=== PATIENT | male | born 1955 | race Caucasian/White ===

== ENCOUNTER 2021-01-29 15:40 | Emergency (ER) | payer OTHER, SELFPAY ==
[~2021-01-29] VITALS: Ht 188 cm; Wt 90.9 kg
[2021-01-29] MEDS ORDERED: normal saline 1000ML IV soln IVB ONE (15:50)
[2021-01-29] MEDS ORDERED: ondansetron/PF 4mg/2ml inj IV ONE (15:50)
[2021-01-29 15:59] VITALS: BP 141/81
[2021-01-29 16:16] LABS: LYMPHOCYTES # (AUTO) 1.3 X10'3 (1.1-4.8); LYMPHOCYTES % (AUTO) 25.5 % (21-51); MONOCYTES # (AUTO) 0.4 X10'3 (0-0.9)
[2021-01-29 16:18] LABS: BASOPHILS # (AUTO) 0.1 X10'3 (0-0.2); BASOPHILS % (AUTO) 1.1 % (0-1); EOSINOPHILS % (AUTO) 0.4 % (0-6); HEMATOCRIT 48.3 % (42.0-52.0); HEMOGLOBIN 16.8 g/dl (14.0-17.9); MEAN CORPUSCULAR HEMOGLOBIN 31.3 PG (27.0-31.0); MEAN CORPUSCULAR HGB CONC 34.8 g/dL (33.0-36.5); MEAN CORPUSCULAR VOLUME 89.9 FL (78-98); MEAN PLATELET VOLUME 8.2 FL (7.4-10.4); MONOCYTES % (AUTO) 8.2 % (2-12); NEUTROPHILS # (AUTO) 3.3 X10'3 (1.8-7.7); NEUTROPHILS % (AUTO) 64.8 % (42-75); PLATELET COUNT 275 X10'3 (140-440); RED BLOOD COUNT 5.37 X10'6 (4.70-6.10); RED CELL DISTRIBUTION WIDTH 14.3 % (11.5-14.5)
[2021-01-29 16:28] LABS: ALANINE AMINOTRANSFERASE 31 U/L (12-78); ALBUMIN 3.2 G/DL (3.4-5.0); ALBUMIN/GLOBULIN RATIO 0.7 (1.1-1.5); ALKALINE PHOSPHATASE 75 IU/L (46-116); ANION GAP 9 (8-16); ASPARTATE AMINO TRANSFERASE 28 U/L (10-37); BILIRUBIN,TOTAL 0.6 MG/DL (0.1-1.0); BLOOD UREA NITROGEN 14 MG/DL (7-18); BUN/CREATININE RATIO 10.4 (5.4-32.0); CALCIUM 8.1 MG/DL (8.5-10.1); CHLORIDE 105 MMOL/L (99-107); CREATININE 1.34 MG/DL (0.60-1.10); GLUCOSE 105 MG/DL (70-104); POTASSIUM 4.4 MMOL/L (3.5-5.1); SODIUM 143 MMOL/L (135-145); TOTAL CARBON DIOXIDE 29.4 MMOL/L (24-32); TOTAL PROTEIN 7.5 G/DL (6.4-8.2); eGFR 54 ML/MIN
[2021-01-29] MEDS ORDERED: ONDA4TAB6 PO (16:41)
[2021-01-29] MEDS ORDERED: ALBU6.7H9 INH (16:44)
[2021-01-29] MEDS ORDERED: BENZ-38 PO (16:44)
[2021-01-29 18:12] LABS: PLATELET ESTIMATE NORMAL; TOTAL CELLS COUNTED 100
== END 2021-01-29 17:20 | disposition home or self-care (01) ==
LOC: ER 15:41
DX: E86.0 Dehydration (principal); R05.9 Cough, unspecified; R50.9 Fever, unspecified; R11.0 Nausea; R19.7 Diarrhea, unspecified; Z79.899 Other long term (current) drug therapy
CPT/HCPCS: 36415; 71045; 80053; 85007; 85025; 96361; 96374; 99284; J2405; J7030

== ENCOUNTER 2021-01-31 14:54 | Emergency (ER) | payer OTHER ==
[~2021-01-31] VITALS: Ht 188 cm; Wt 88.6 kg
[~2021-01-31 14:54] MED LIST: ALBU6.7H9 INH; BENZ-38 PO; ONDA4TAB6 PO
[2021-01-31 15:26] VITALS: BP 114/68
[2021-01-31] MEDS ORDERED: normal saline 1000ML IV soln IVB ONE (16:10)
[2021-01-31 16:43] LABS: BASOPHILS # (AUTO) 0.1 X10'3 (0-0.2); BASOPHILS % (AUTO) 0.9 % (0-1); EOSINOPHILS % (AUTO) 0.1 % (0-6); HEMATOCRIT 46.5 % (42.0-52.0); MEAN CORPUSCULAR HEMOGLOBIN 30.9 PG (27.0-31.0); MEAN CORPUSCULAR HGB CONC 34.3 g/dL (33.0-36.5); MEAN CORPUSCULAR VOLUME 90.2 FL (78-98); MEAN PLATELET VOLUME 8.7 FL (7.4-10.4); MONOCYTES # (AUTO) 0.5 X10'3 (0-0.9); MONOCYTES % (AUTO) 8.7 % (2-12); NEUTROPHILS # (AUTO) 4.2 X10'3 (1.8-7.7); NEUTROPHILS % (AUTO) 73.3 % (42-75); PLATELET COUNT 306 X10'3 (140-440); RED BLOOD COUNT 5.16 X10'6 (4.70-6.10); RED CELL DISTRIBUTION WIDTH 14.3 % (11.5-14.5); WHITE BLOOD COUNT 5.7 X10'3 (4.5-11.0)
--- NOTE | 2021-01-31 16:43 | NUR ---
RELIEVING RN FOR BREAK, 1ST LITER NS INFUSING
[2021-01-31 16:58] LABS: ALANINE AMINOTRANSFERASE 30 U/L (12-78); ALBUMIN 3.3 G/DL (3.4-5.0); ALBUMIN/GLOBULIN RATIO 0.8 (1.1-1.5); ALKALINE PHOSPHATASE 71 IU/L (46-116); ANION GAP 8 (8-16); ASPARTATE AMINO TRANSFERASE 27 U/L (10-37); BILIRUBIN,TOTAL 0.7 MG/DL (0.1-1.0); BLOOD UREA NITROGEN 14 MG/DL (7-18); BUN/CREATININE RATIO 11.3 (5.4-32.0); CALCIUM 8.4 MG/DL (8.5-10.1); CHLORIDE 100 MMOL/L (99-107); CREATININE 1.24 MG/DL (0.60-1.10); GLUCOSE 115 MG/DL (70-104); MAGNESIUM 2.4 MG/DL (1.5-2.4); POTASSIUM 4.2 MMOL/L (3.5-5.1); SODIUM 139 MMOL/L (135-145); TOTAL CARBON DIOXIDE 30.8 MMOL/L (24-32); TOTAL PROTEIN 7.5 G/DL (6.4-8.2); eGFR 59 ML/MIN
[2021-01-31] MEDS ORDERED: ONDA8TAB13 PO (17:32)
[2021-01-31] MEDS ORDERED: AZIT-21 PO (17:32)
[2021-01-31] MEDS ORDERED: ALB0.5UD IH (17:48)
== END 2021-01-31 17:56 | disposition home or self-care (01) ==
LOC: ER 14:55
DX: U07.1 COVID-19 (principal); J18.9 Pneumonia, unspecified organism; R05.9 Cough, unspecified; E86.0 Dehydration; R50.9 Fever, unspecified; R42 Dizziness and giddiness; R11.2 Nausea with vomiting, unspecified; Z79.2 Long term (current) use of antibiotics; Z79.899 Other long term (current) drug therapy
CPT/HCPCS: 36415; 71045; 80053; 83735; 85025; 96360; 99284; J7030